=== PATIENT | male | born 1995 | race Caucasian/White ===

== ENCOUNTER 2017-11-02 14:33 | Emergency (ER) | payer SELFPAY ==
[2017-11-02] MEDS: IBUPROFEN 800 MG TAB PO (15:34)
[2017-11-02] MEDS: DIPHTH/TET/ACEL PERTUSS (ADULT) 0.5 ML VIAL IM* (15:37)
== END 2017-11-02 16:15 | disposition home or self-care (01) ==
LOC: FTE 14:33
DX: S31.825A Open bite of left buttock, initial encounter (principal); W54.0XXA Bitten by dog, initial encounter; Y92.89 Other specified places as the place of occurrence of the external cause; Z23 Encounter for immunization
CPT/HCPCS: 90471; 90715; 99283-25